=== PATIENT | male | born 1990 | race Caucasian/White ===

== ENCOUNTER 2019-03-05 14:06 | Emergency (ER) | payer SELFPAY ==
[~2019-03-05] VITALS: Ht 175.3 cm; Wt 73.0 kg
[2019-03-05] MEDS ORDERED: TETANUS, DIPHTHERIA, PERTUSSIS VAC/PF 0.5ML (>7YR OLD) IM ONE (14:45)
[2019-03-05 17:52] VITALS: BP 124/71
== END 2019-03-05 17:54 | disposition home or self-care (01) ==
LOC: ER 14:06
DX: S20.312A Abrasion of left front wall of thorax, initial encounter (principal); S20.311A Abrasion of right front wall of thorax, initial encounter; F17.210 Nicotine dependence, cigarettes, uncomplicated; X94.0XXA Assault by shotgun, initial encounter; Y93.89 Activity, other specified; Y92.89 Other specified places as the place of occurrence of the external cause; Y99.8 Other external cause status
CPT/HCPCS: 90471; 90715; 99283; 99406